=== PATIENT | male | born 1950 | race Caucasian/White ===

== ENCOUNTER 2019-11-11 08:58 | Day surgery (SDC) | payer MEDICARE, OTHER ==
--- NOTE | 2019-11-04 08:00 | HP ---
DATE OF SURGERY: 11/11/2019 HISTORY OF PRESENT ILLNESS: The patient presents to the office with complaints of right upper quadrant pain. He states it radiates to his lower back. He has been having the pain over the past month. The pain comes and goes especially with large meals. He does not notice any certain type of food that is a trigger. He denies nausea, vomiting and diarrhea. He states that he has had this happen in the past four years. It is worse over the past month. PAST MEDICAL HISTORY: Hypertension, neuropathy. PAST SURGICAL HISTORY: Hernia repair uncertain where at. ALLERGIES: LATEX. LEVAQUIN. MACRODANTIN. FURADANTIN. MEDICATIONS: Enalapril, gabapentin. FAMILY HISTORY: None reported. SOCIAL HISTORY: None reported. REVIEW OF SYSTEMS: CONSTITUTIONAL: Denies fever or chills. CHEST: Denies shortness of breath. CVS: Denies chest pain. ABDOMEN: Reports right upper quadrant pain. Denies nausea, vomiting, diarrhea, constipation or rectal bleeding. : Denies dysuria or hematuria. PHYSICAL EXAMINATION: GENERAL: No acute distress. CHEST: Nonlabored. No shortness of breath. CVS: Regular rate and rhythm. ABDOMEN: Soft, tender to palpation in right upper quadrant. EXTREMITIES: No edema. NEUROLOGIC: Alert. PSYCHIATRIC: Appropriate. IMPRESSION: The patient has had an ultrasound showing that he has cholelithiasis. Diagnosis with symptomatic cholelithiasis. PLAN: Outpatient laparoscopic cholecystectomy with Dr. Rustam Aquino. As dictated by Diana Jacques NP.
[2019-11-11] MEDS ORDERED: Lactated Ringers 1,000 ML IV ONE ×3 (09:21→12:59)
[2019-11-11] MEDS ORDERED: Lactated Ringers 1,000 ML IV SCH (09:30)
[2019-11-11] MEDS ORDERED: MEFOXIN 2 GM PREMIX** 2 GM/50 ML ML IV SCH (10:00)
[2019-11-11] MEDS ORDERED: Quelicin Fliptop 200 MG/10 ML ONE (11:10)
[2019-11-11] MEDS ORDERED: DIPRIVAN 200 MG/20 ML IV ONE (11:10)
[2019-11-11] MEDS ORDERED: SUBLIMAZE 250 MCG/5 ML ONE (11:10)
[2019-11-11] MEDS ORDERED: Versed 2 MG/2 ML Injection ONE (11:10)
[2019-11-11] MEDS ORDERED: Zemuron 100 MG/10 ML ONE (11:10)
[2019-11-11] MEDS ORDERED: Sensorcaine 0.25% 10 ML ONE (11:16)
[2019-11-11] MEDS ORDERED: Xylocaine-Mpf 2% 5 Ml Vial ONE (11:38)
[2019-11-11] MEDS ORDERED: BRIDION 200MG/2ML IV ONE (12:16)
[2019-11-11] MEDS ORDERED: Zofran 4 MG/2 ML VIAL ONE (12:48)
[2019-11-11] MEDS ORDERED: TRANDATE 100 MG/20 ML MDV FOR DRIP IV ONE (12:55)
[2019-11-11] MEDS ORDERED: MORPHINE SULFATE 10 MG/ML ONE (12:59)
--- NOTE | 2019-11-11 14:38 | OP ---
SURGERY DATE/TIME: 11/11/2019 1140 PREOPERATIVE DIAGNOSIS: Symptomatic cholelithiasis. POSTOPERATIVE DIAGNOSIS: Hydrops of the gallbladder with five large gallstones measuring about 3 cm each. PROCEDURE: Laparoscopic cholecystectomy. SURGEON: Dr. Rustam Aquino. ANESTHESIA: General endotracheal tube. ESTIMATED BLOOD LOSS: None. DRAINS: None. COMPLICATIONS: None. CONDITION: Stable. INDICATIONS: A patient with cholecystitis/cholelithiasis. DESCRIPTION OF PROCEDURE AND FINDINGS: Taken to surgery. General anesthetic, routine prep and drape. Time out performed. IV antibiotics had been given. Veress needle inserted supraumbilical very deliberately. Insufflating pressure 14. Four - 5's were used. Gallbladder was large and distended. Colon was stuck up onto the gallbladder quite a bit and was pulled down very meticulously. Infundibulum dissected. There was a hydrops. The cystic duct defined. The cystic artery defined. Cystic duct was only 0.5 mm. It was triply clipped and transected. It had bile in it. Cystic artery triply clipped. Gallbladder rolled out of gallbladder fossa. The gallbladder delivered through upper umbilical port. The patient was really quite thin here about 1 inch. Hole was widened. The gallbladder was removed including five large gallstones. The patient was thin enough and the incision was necessary to widen this to a little over 2 cm with the size of the stones. It was able to be closed with the fascia being closed with running suture #0 Vicryl. Skin closed with 4-0 Vicryl and Steri-Strips. The patient tolerated the procedure satisfactorily.
[2019-11-11 15:43] VITALS: BP 129/69; PULSE 74; O2SAT 94
== END 2019-11-11 15:20 | disposition home or self-care (01) ==
LOC: SDC 08:58
PROVIDERS: ATTEND Surgery
DX: K80.10 Calculus of gallbladder with chronic cholecystitis without obstruction (principal); K82.1 Hydrops of gallbladder; I10 Essential (primary) hypertension; G62.9 Polyneuropathy, unspecified; Z79.899 Other long term (current) drug therapy
CPT/HCPCS: 99100; J0330; J0694; J2250; J2270; J2405; J2704; J3010